=== PATIENT | female | born 1945 | race Caucasian/White ===

== ENCOUNTER 2017-01-21 09:50 | Emergency (ER) | payer MEDICARE, OTHER ==
[~2017-01-21] VITALS: Wt 78.0 kg
[~2017-01-21 09:50] MED LIST: ASPI-664 PO; ATOR40TA68 PO; BENA40TA41 PO; GUAI118L94 PO; OMEP40CA6 PO; SODI44SP11 NASAL
[2017-01-21] MEDS ORDERED: ACET500C5 PO (10:43)
[2017-01-21] MEDS ORDERED: METO10TA92 PO (10:43)
--- NOTE | 2017-01-21 10:47 | ERD ---
ER Documentation Chief Complaint Date/Time DATE: 01/21/17 TIME: 10:45 Chief Complaint SORE THROAT X 4 DAYS HPI 71-year-old female presents with a burning sensation of throat for last 4 days. She has a history of GERD. She feels that it radiates from her stomach through the chest. She is taking omeprazole. She denies any fevers, cough,, vomiting, abdominal pain, additional symptoms ROS All systems reviewed and are negative except as per history of present illness. Medications Home Meds Active Scripts Metoclopramide* (Reglan*) 10 Mg Tablet, 10 MG PO TID Y for NAUSEA AND/OR VOMITING for 7 Days, #21 TAB Prov:ORACIO GUY MD 01/21/17 Acetaminophen* (Tylophen*) 500 Mg Capsule, 1 CAP PO Q6H Y for PAIN AND OR ELEVATED TEMP, #15 CAP Prov:ORACIO GUY MD 01/21/17 Guaifenesin-Codeine Phosphate* (Guaifenesin* with Codeine Liq) 120 Ml Liquid, 5 ML PO QHS Y for COUGH, #120 ML Prov:MEEK PONCE NP 11/04/15 Sodium Chloride (Saline Nasal [place]) 45 Ml [place], 2 SPRAYS NASAL Q2H Y for NASAL CONGESTION, #1 BOTTLE Prov:MEEK PONCE NP 11/04/15 Reported Medications Aspirin* (Aspirin* (EC)) 81 Mg Tablet.dr, 81 MG PO DAILY, TAB 09/06/14 Omeprazole* (Omeprazole*) 40 Mg Capsule.dr, 40 MG PO DAILY, CAP 09/06/14 Atorvastatin* (Atorvastatin*) 40 Mg Tablet, 40 MG PO HS, TAB 09/06/14 Benazepril Hcl* (Benazepril Hcl*) 40 Mg Tablet, 40 MG PO DAILY, TAB 09/06/14 Allergies Allergies: Coded Allergies: No Known Allergy (Unverified , 09/06/14) PMhx/Soc History of Surgery: No Anesthesia Reaction: No Hx Neurological Disorder: No Hx Respiratory Disorders: No Hx Cardiac Disorders: Yes (HTN, HLD) Hx Psychiatric Problems: No Hx Miscellaneous Medical Probl: Yes (GERD) Hx Alcohol Use: No Hx Substance Use: No Hx Tobacco Use: No Smoking Status: Never smoker Physical Exam Vitals Vital Signs Date Time Temp Pulse Resp B/P Pulse Ox O2 Delivery O2 Flow Rate FiO2 01/21/17 09:55 99.1 64 18 179/81 99 Physical Exam Const: [] Alert, [id number] per Head: Atraumatic Eyes: Normal Conjunctiva ENT: Normal External Ears, Nose and Mouth. Uvula midline, some slight cobblestoning or irritation but no erythema or exudate. Neck: Full range of motion..~ No meningismus. Resp: Clear to auscultation bilaterally Cardio: Regular rate and rhythm, no murmurs Abd: Soft, non tender, non distended. Normal bowel sounds Skin: No petechiae or rashes Back: No midline or flank tenderness Ext: No cyanosis, or edema Neur: Awake and alert Psych: Normal Mood and Affect Procedures/MDM EKG: Rate/Rhythm: [Normal Sinus Rhythm] rate equals 61 QRS, ST, T-waves: [No changes consistent w/ acute ischemia] Impression: [No evidence of ischemia or arrhythmia]. Impression-no acute ischemic findings on EKG. Patient presents with a burning sensation radiating from her stomach up to her throat consistent with GERD. We will add Reglan to her current regimen. Patient was advised to follow-up with primary doctor and possibly GI for further evaluation. She is otherwise return for fevers, worsening chest PAIN additional symptoms. The patient was stable with no new complaints during the ER course. Clinically, there is no current evidence to suggest meningitis, sepsis, acute abdomen, pneumonia, acute coronary syndrome, pulmonary embolism, or any other emergent condition appearing to require further evaluation or hospitalization. The patient should certainly return for any new or worsening symptoms per the aftercare instructions. They should otherwise follow-up with her primary care doctor for reevaluation this week. Departure Diagnosis: Primary Impression: Hypertension Hypertension type: essential hypertension Qualified Code: I10 - Essential hypertension Additional Impressions: Acid reflux Esophagitis presence: esophagitis presence not specified Qualified Code: K21.9 - Gastroesophageal reflux disease, esophagitis presence not specified Sore throat Condition: Stable Patient Instructions: High Blood Pressure (Hypertension), Gerd (Adult) Additional Instructions: CONTINUA LA MEDICINA. Cheque otro vez con gilliam doctor primario en el proximo bland or regresa para mas o nueva simptomas. ORACIO GUY MD Jan 21, 2017 10:47
[2017-01-21 10:54] VITALS: BP 165/80; PULSE 78; RESP 18; TEMP 98
== END 2017-01-21 10:55 | disposition home or self-care (01) ==
LOC: FTE 09:50
DX: I10 Essential (primary) hypertension (principal); K21.9 Gastro-esophageal reflux disease without esophagitis; Z79.82 Long term (current) use of aspirin
CPT/HCPCS: 93005

== ENCOUNTER 2017-06-15 12:35 | Emergency (ER) | payer MEDICARE, OTHER ==
[~2017-06-15] VITALS: Wt 75.7 kg
[~2017-06-15 12:35] MED LIST changes: +ACET500C5 PO; +METO10TA92 PO
[2017-06-15 13:52] LABS: BASOPHILS % 0.7 % (0.0-2.0); EOSINOPHILS # 0.1 10^3/ul (0.0-0.5); EOSINOPHILS % 2.4 % (0.0-7.0); HEMATOCRIT 38.9 % (37.0-47.0); HEMOGLOBIN 12.9 g/dl (12.0-16.0); LYMPHOCYTES # 1.6 10^3/ul (0.8-2.9); LYMPHOCYTES % 28.2 % (15.0-51.0); MEAN CORPUSCULAR HEMOGLOBIN 29.5 pg (29.0-33.0); MEAN CORPUSCULAR HGB CONC 33.2 g/dl (32.0-37.0); MEAN CORPUSCULAR VOLUME 88.8 fl (82.0-101.0); MEAN PLATELET VOLUME 9.7 fl (7.4-10.4); MONOCYTE # 0.3 10^3/ul (0.3-0.9); MONOCYTES % 4.6 % (0.0-11.0); NEUTROPHIL # 3.7 10^3/ul (1.6-7.5); NEUTROPHILS % 63.9 % (39.0-77.0); PLATELET COUNT 275 10^3/UL (140-415); RED BLOOD COUNT 4.38 10^6/ul (4.20-5.40); RED CELL DISTRIBUTION WIDTH 13.7 % (11.5-14.5); WHITE BLOOD COUNT 5.8 10^3/ul (4.8-10.8)
[2017-06-15 13:54] LABS: ADD UMIC YES; UR ASCORBIC ACID 40 mg/dL (NEGATIVE); UR BILIRUBIN (Dip) NEGATIVE (NEGATIVE); UR BLOOD (Dip) NEGATIVE (NEGATIVE); UR CLARITY CLEAR (CLEAR); UR COLOR YELLOW (YELLOW); UR GLUCOSE (Dip) NEGATIVE (NEGATIVE); UR KETONES (Dip) NEGATIVE (NEGATIVE); UR LEUKOCYTE ESTERASE (Dip) 1+ Leu/ul (NEGATIVE); UR NITRITE (Dip) NEGATIVE (NEGATIVE); UR RBC 2 /HPF (0-5); UR SPECIFIC GRAVITY (Dip) 1.021 (1.003-1.030); UR SQUAMOUS EPITHELIAL CELL FEW /HPF (FEW); UR TOTAL PROTEIN (Dip) NEGATIVE (NEGATIVE); UR UROBILINOGEN (Dip) NEGATIVE (NEGATIVE)
--- NOTE | 2017-06-15 14:02 | RADRPT ---
PROCEDURE: CT Brain without contrast. CLINICAL INDICATION: Trauma TECHNIQUE: CT scan of the brain was performed on a multidetector high-resolution CT scan. Axial im aging was obtained of the brain without contrast administration. Coronal and sagittal reformatted i mages were obtained from the axial source images. Standard CT scan of the head without contrast prot ocols were performed. The total exam CTDI equals 43.16 mGy and the total exam DLP equals 720.23 mGy-cm. One or more of the following dose reduction techniques were used: - Automated exposure control. - Adjustment of the mA and/or kV according to patient size. Use of iterative reconstruction technique. Dicom images are available COMPARISON: None. FINDINGS: The ventricular system and peripheral CSF spaces are proportionately prominent consistent with mild generalized cerebral volume loss. Negative for intracranial masses hemorrhages or midline shift. The re is mild periventricular deep white matter changes that is nonspecific and consistent with chronic microvascular ischemic disease. Remote lacunar infarct involving the anterior limb of the left inte rnal capsule. The pisano-white matter junction is unremarkable. The bones of the calvarium are intact. The visualized paranasal sinuses and mastoids are unremarkable. IMPRESSION: 1. No evidence intracranial masses hemorrhages midline shift. 2. Mild generalized cerebral volume loss and nonspecific chronic microvascular ischemic disease. 3. Remote lacunar infarct left internal capsule. RPTAT:AAJJ Physician Gisella Date Time Electronically viewed and signed by Physician Gisella on 06/15/2017 14:02 /
--- NOTE | 2017-06-15 14:06 | RADRPT ---
PROCEDURE: CT cervical spine without contrast CLINICAL INDICATION: Trauma. Numbness. Neck pain. TECHNIQUE: CT scan of the cervical spine [facility] No [facility] contrast was administered. Coronal and sagittal reformatted images were obtained from th e axial source images. Images were reviewed on a high-resolution PACS workstation. One or more the f ollowing does reduction techniques were utilized: Automated exposure control, adjustment of the mA/ or kV according to patient's size, or use of iterative reconstruction technique. Exam CTDI = 19.2 mG y and the DLP = 380.18 mGy-cm. DICOM images are available. COMPARISON: None available. FINDINGS: There is straightening of the alignment of the cervical spine with loss of the normal cervical lordo sis. There is 2 mm anterolisthesis at C6-C7. No acute fracture or dislocation is seen. The verteb ral body heights are preserved. No mass, hematoma, or other soft tissue abnormality is seen. There are multilevel mild degenerative changes of the cervical spine, manifested by osteophytosis an d disc height narrowing, most prominent at C4-C5, C5-C6 and C6-C7. Uncovertebral osteophytes and facet arthropathy result in multilevel foraminal stenosis: at C3-C4 mi ld on the right, at C4-C5 moderate to severe on the right and moderate on the left, at C5-C6 mild on the right. Posterior disc osteophyte complexes contribute to mild spinal canal narrowing at C3-C4 t hrough C5-C6. There is effacement of left piriformis sinus. There is 1.2 cm hypodense nodule in the posterior right thyroid lobe. IMPRESSION: 1. Straightening of normal cervical lordosis. 2 mm anterolisthesis at C6-C7. 2. No acute cervical spine fracture. 3. Multilevel mild degenerative changes of the cervical spine, most prominent at C4-C5, C5-C6 and C 6-C7. 4. Posterior disc osteophyte complexes contribute to mild spinal canal narrowing at C3-C4 through C 5-C6. 5. Multilevel foraminal stenosis as outlined in details in findings. 6. 1.2 cm hypodense nodule in the posterior right thyroid lobe. Consider thyroid ultrasound as clin ically warranted. RPTAT: .Mimi Oquendo MD, MD Date Time Electronically viewed and signed by .Mimi Oquendo MD, MD on 06/15/2017 14:05 .N/
[2017-06-15 14:10] LABS: ALBUMIN 4.3 g/dl (3.3-4.9); ALBUMIN/GLOBULIN RATIO 1.34; BILIRUBIN,INDIRECT 0.3 mg/dl (0-1.1); BILIRUBIN,TOTAL 0.3 mg/dl (0.2-1.3); CALCIUM 9.7 mg/dl (8.4-10.2); CREATININE 0.84 mg/dl (0.44-1.00); POTASSIUM 4.4 mmol/L (3.5-5.1); TOTAL PROTEIN 7.5 g/dl (6.1-8.1)
[2017-06-15] MEDS ORDERED: ACET500C5 PO (14:34)
--- NOTE | 2017-06-15 14:37 | ERD ---
ER Documentation Chief Complaint Chief Complaint HAND PAIN/TINGLING X5DAYS; MALAISE HPI 71-year-old female presents with bilateral hand numbness and tingling. He has been for 5 days. Approximately 2 weeks ago patient fell and hit her head. She has a persistent lump on the right side. She was seen at another hospital and states that she had a normal CT scan. Patient has mild headache in the area of injury. Patient denies any vomiting, visual changes. Patient has mild neck pain. She denies any fevers, vomiting, shortness of breath or chest pain. She does feel fatigued. There is an additional complaint approximately 10-20 pound weight loss over the last 6 months. ROS All systems reviewed and are negative except as per history of present illness. Medications Home Meds Active Scripts Cephalexin* (Keflex*) 500 Mg Capsule, 500 MG PO QID for 5 Days, CAP Prov:ORACIO GUY MD 06/15/17 Acetaminophen* (Tylophen*) 500 Mg Capsule, 1 CAP PO Q6H Y for PAIN AND OR ELEVATED TEMP, #15 CAP Prov:ORACIO GUY MD 06/15/17 Metoclopramide* (Reglan*) 10 Mg Tablet, 10 MG PO TID Y for NAUSEA AND/OR VOMITING for 7 Days, #21 TAB Prov:ORACIO GUY MD 01/21/17 Acetaminophen* (Tylophen*) 500 Mg Capsule, 1 CAP PO Q6H Y for PAIN AND OR ELEVATED TEMP, #15 CAP Prov:ORACIO GUY MD 01/21/17 Guaifenesin-Codeine Phosphate* (Guaifenesin* with Codeine Liq) 120 Ml Liquid, 5 ML PO QHS Y for COUGH, #120 ML Prov:MEEK PONCE. KELLEE 11/04/15 Sodium Chloride (Saline Nasal [place]) 45 Ml [place], 2 SPRAYS NASAL Q2H Y for NASAL CONGESTION, #1 BOTTLE Prov:MEEK PONCE NP 11/04/15 Reported Medications Aspirin* (Aspirin* (EC)) 81 Mg Tablet., 81 MG PO DAILY, TAB 09/06/14 Omeprazole* (Omeprazole*) 40 Mg Capsule.dr, 40 MG PO DAILY, CAP 09/06/14 Atorvastatin* (Atorvastatin*) 40 Mg Tablet, 40 MG PO HS, TAB 09/06/14 Benazepril Hcl* (Benazepril Hcl*) 40 Mg Tablet, 40 MG PO DAILY, TAB 09/06/14 Allergies Allergies: Coded Allergies: No Known Allergy (Unverified , 09/06/14) PMhx/Soc History of Surgery: No Anesthesia Reaction: No Hx Neurological Disorder: No Hx Respiratory Disorders: No Hx Cardiac Disorders: Yes (HTN, HLD) Hx Psychiatric Problems: No Hx Miscellaneous Medical Probl: Yes (GERD) Hx Alcohol Use: No Hx Substance Use: No Hx Tobacco Use: No Smoking Status: Never smoker Physical Exam Vitals Vital Signs Date Time Temp Pulse Resp B/P Pulse Ox O2 Delivery O2 Flow Rate FiO2 06/15/17 12:39 98.1 76 20 174/81 100 Physical Exam Const: [] Alert, [id number]. Head: Tenderness with mild swelling and small hematoma in the right parietal area. No step-offs appreciated.. Eyes PERRLA and extraocular movements intact. Eyes: Normal Conjunctiva ENT: Normal External Ears, Nose and Mouth. Neck: Full range of motion..~ No meningismus. Resp: Clear to auscultation bilaterally Cardio: Regular rate and rhythm, no murmurs Abd: Soft, non tender, non distended. Normal bowel sounds Skin: No petechiae or rashes Back: No midline or flank tenderness Ext: No cyanosis, or edema. Patient is full range of motion of extremities. Pulses are 2+ distally bilaterally. Neur: Awake and alert. Amatory without deficits or weakness. No cerebellar signs. Psych: Normal Mood and Affect Result Diagram: 06/15/17 1325 06/15/17 1325 Results 24 hrs Laboratory Tests Test 06/15/17 13:25 White Blood Count 5.810^3/ul Red Blood Count 4.3810^6/ul Hemoglobin 12.9g/dl Hematocrit 38.9% Mean Corpuscular Volume 88.8fl Mean Corpuscular Hemoglobin 29.5pg Mean Corpuscular Hemoglobin Concent 33.2g/dl Red Cell Distribution Width 13.7% Platelet Count 22574^3/UL Mean Platelet Volume 9.7fl Neutrophils % 63.9% Lymphocytes % 28.2% Monocytes % 4.6% Eosinophils % 2.4% Basophils % 0.7% Nucleated Red Blood Cells % 0.0/100WBC Neutrophils # 3.710^3/ul Lymphocytes # 1.610^3/ul Monocytes # 0.310^3/ul Eosinophils # 0.110^3/ul Basophils # 0.010^3/ul Nucleated Red Blood Cells # 0.010^3/ul Urine Color YELLOW Urine Clarity CLEAR Urine pH 5.0 Urine Specific [place] 1.021 Urine Ketones NEGATIVEmg/dL Urine Nitrite NEGATIVEmg/dL Urine Bilirubin NEGATIVEmg/dL Urine Urobilinogen NEGATIVEmg/dL Urine Leukocyte Esterase 1+Amber/ul Urine Microscopic RBC 2/HPF Urine Microscopic WBC 4/HPF Urine Squamous Epithelial Cells FEW/HPF Urine Hemoglobin NEGATIVEmg/dL Urine Glucose NEGATIVEmg/dL Urine Total Protein NEGATIVEmg/dl Sodium Level 141mmol/L Potassium Level 4.4mmol/L Chloride Level 100mmol/L Carbon Dioxide Level 30mmol/L Anion Gap 15 Blood Urea Nitrogen 17mg/dl Creatinine 0.84mg/dl Glucose Level 150mg/dl Calcium Level 9.7mg/dl Total Bilirubin 0.3mg/dl Direct Bilirubin 0.00mg/dl Indirect Bilirubin 0.3mg/dl Aspartate Amino Transf (AST/SGOT) 16IU/L Alanine Aminotransferase (ALT/SGPT) 31IU/L Alkaline Phosphatase 92IU/L Total Protein 7.5g/dl Albumin 4.3g/dl Globulin 3.20g/dl Albumin/Globulin Ratio 1.34 Procedures/MDM The brain shows no acute findings and CT cervical spine surgery degenerative changes without acute findings of fracture or acute traumatic abnormalities. EKG: Rate/Rhythm: [Normal Sinus Rhythm] rate equals 73 QRS, ST, T-waves: [No changes consistent w/ acute ischemia] Impression: [No evidence of ischemia or arrhythmia]. Impression-no acute arrhythmias or signs of ischemia on EKG. CBC and CMP showed no acute abnormalities are normal. Urine shows 1+ leukocytes. There are a few WBCs. Patient presents with paresthesias and a history of head injury 2 weeks ago. There is no evidence of deficits or ischemia. There is no signs or symptoms of intracranial bleeding, neurologic deficit. She may have cervical radicular symptoms. There are findings of UTI and she will be treated for this although I doubt because of symptoms. She will treated with Tylenol, instructions to follow-up with primary doctor or return to the ER for new or worsening symptoms. No evidence of neck injury, additional emergent causes of presenting complaints but patient should return as advised or follow-up as directed. The patient was stable with no new complaints during the ER course. Clinically, there is no current evidence to suggest meningitis, sepsis, acute abdomen, pneumonia, acute coronary syndrome, pulmonary embolism, or any other emergent condition appearing to require further evaluation or hospitalization. The patient should certainly return for any new or worsening symptoms per the aftercare instructions. They should otherwise follow-up with her primary care doctor for reevaluation this week. Departure Diagnosis: Primary Impression: Hand paresthesia Laterality: bilateral Qualified Code: R20.2 - Paresthesia of both hands Condition: Stable Patient Instructions: Radiculopathy, Cervical, Paraesthesias Additional Instructions: Examines normal hoy. PROBABLAMENTE DEL NERVIOS DE NUCHA. Cheque otro vez con gilliam doctor primario en el proximo bland or regresa para mas o nueva simptomas. ORACIO GUY MD Jun 15, 2017 14:37
[2017-06-15] MEDS ORDERED: CEPH-443 PO (14:38)
== END 2017-06-15 14:45 | disposition home or self-care (01) ==
LOC: FTE 12:35
DX: R20.2 Paresthesia of skin (principal); I10 Essential (primary) hypertension; Z79.82 Long term (current) use of aspirin
CPT/HCPCS: 70450; 72125; 80053; 81001; 85025; 93005

== ENCOUNTER 2017-07-07 14:03 | Emergency (ER) | END 2017-07-07 18:26 | disposition home or self-care (01) ==

== ENCOUNTER 2017-11-01 13:36 | Emergency (ER) | END 2017-11-01 16:19 | disposition home or self-care (01) ==

== ENCOUNTER 2018-05-16 13:34 | Emergency (ER) | END 2018-05-16 14:55 | disposition home or self-care (01) ==